=== PATIENT | female | born 1970 | race Caucasian/White ===

== ENCOUNTER 2021-07-20 11:53 | Emergency (ER) | payer MEDICAID, OTHER ==
[~2021-07-20] VITALS: Ht 157.5 cm; Wt 67.1 kg
--- NOTE | 2021-07-20 11:56 | NUR ---
TO ER BED 10, C/O OF CHEST PAIN STARTED THIS MORNING P/S 07/10 AT HOME 01/08 UPON EVAL, AAOX3, BREATHING EVEN AND NON LABORED, CHANGED INTO A GOWN, CONNECTED TO MONITOR.
[2021-07-20] MEDS ORDERED: KETOROLAC TROMETHAMINE 15 MG/ML VIAL ONE (12:00)
[2021-07-20] MEDS ORDERED: KETOROLAC TROMETHAMINE INJ 30 MG/ML VIAL IM ONE (12:00)
--- NOTE | 2021-07-20 12:00 | NUR ---
SALINE LOCK ESTABLISHED, BLOOD DRAWN AND PICKED UP BY LAB
[2021-07-20 12:26] LABS: BASOPHILS # (AUTO) 0.1 K/uL (0.0-0.2); EOSINOPHILS % (AUTO) 3.6 % (0.0-6.0); HEMATOCRIT 38 % (33-45); HEMOGLOBIN 12.9 g/dL (11.5-14.8); LYMPHOCYTES # (AUTO) 1.8 K/uL (0.8-4.8); LYMPHOCYTES % (AUTO) 33.8 % (20.0-44.0); MEAN CORPUSCULAR HGB CONC 34 g/dl (31.0-36.0); MEAN CORPUSCULAR VOLUME 89 fL (82-100); MONOCYTES # (AUTO) 0.4 K/uL (0.1-1.30); MONOCYTES % (AUTO) 7.9 % (2.0-12.0); NEUTROPHILS # (AUTO) 2.9 K/uL (1.8-8.9); NEUTROPHILS % (AUTO) 53.7 % (43.0-81.0); PLATELET COUNT (AUTO) 262 K/uL (150-450); RED BLOOD CELL COUNT(AUTO) 4.29 MIL/uL (4.0-5.2); WHITE BLOOD COUNT (AUTO) 5.3 K/uL (4.3-11.0)
[2021-07-20 12:41] LABS: CALCIUM, SERUM 8.8 mg/dL (8.5-10.1); CARBON DIOXIDE 25 mmol/L (21-32); CHLORIDE 104 mmol/L (98-107); CREATININE 0.9 mg/dL (0.6-1.3); GLUCOSE 97 mg/dL (74-106); POTASSIUM 3.2 mmol/L (3.5-5.1); SODIUM SERUM 141 mmol/L (136-145); UREA NITROGEN, BLOOD 17 mg/dL (7-18)
--- NOTE | 2021-07-20 13:58 | NUR ---
The patient is alert and oriented x4. Denies pain. In room air and denies SOB. Respiration regualr and unlabored. IV removed. Catheter intact and site benign. Pressure and 4x4 applied to site. No bleeding noted.Patient discharged to home in stable condition. Written and verbal after care instructions given. Patient verbalizes understanding of instruction. The patient is picked up by friend.
[2021-07-20 13:59] VITALS: BP 110/58
== END 2021-07-20 14:00 | disposition home or self-care (01) ==
LOC: ER 12:29
DX: R07.89 Other chest pain (principal); I25.10 Atherosclerotic heart disease of native coronary artery without angina pectoris; E03.9 Hypothyroidism, unspecified
CPT/HCPCS: 36415; 71045; 80048; 84484; 85025; 93005 ×2; 96372; 99285; J1885